=== PATIENT | female | born 1990 | race Caucasian/White ===

== ENCOUNTER → 2016-10-20 | Outpatient (CLI) | payer BC ==
--- NOTE | 2016-10-20 12:05 | DIAGNOSTIC IMAGING REPORT ---
CHEST 2 VIEWS ROUTINE CLINICAL HISTORY: R76.11 +PPD COMPARISON STUDY: No previous studies for comparison. FINDINGS: The cardiac and mediastinal contours are normal. There is no evidence of focal pulmonary consolidation. There is no evidence of failure. No pleural effusions are visualized.[ Slight indistinctness left heart border is likely secondary to a fat pad. No granulomatous calcifications are visualized. IMPRESSION: No active disease in the chest. Electronically signed by: Jim Gama M.D. 10/20/2016 12:04 PM Dictated Date/Time: 10/20/2016 12:03 PM
== END | disposition home or self-care (01) ==
LOC: C.RAD1850 11:50
PROVIDERS: ATTEND Student in an Organized Health Care Education/Training Program
DX: R76.11 Nonspecific reaction to tuberculin skin test without active tuberculosis (principal)

== ENCOUNTER → 2017-06-09 | Outpatient (CLI) | payer BC | END | disposition home or self-care (01) | LOC: C.PAPS 16:53 | PROVIDERS: ATTEND Physician Assistant | DX: Z01.419 Encounter for gynecological examination (general) (routine) without abnormal findings (principal) ==

== ENCOUNTER 2020-06-13 11:27 | Inpatient (IN) ==
[2020-06-13] MEDS ORDERED: PENICILLIN G POTASSIUM 6 MU in DEXTROSE 5% 250 ML IV STA (12:19)
[2020-06-13] MEDS ORDERED: OXYTOCIN 30 UNITS/500 ML BAG IV PRN ×2 (12:19→12:23)
[2020-06-13 12:51] LABS: Protein Creatinine Ratio Urine 0.4 (0-0.2); Total Protein Urine Random 94.7 mg/dl (0-11.9)
[2020-06-13 13:04] LABS: Hemoglobin 9.6 g/dL (12.0-16.0); Mean Corpuscular Hemoglobin 24.7 pg (25-34); Mean Corpuscular Volume 77.1 fL (80-100); Mean Platelet Volume 11.1 fL (7.4-10.4); Platelet Count 322 K/uL (130-400); RDW Coefficient of Variation 15.2 % (11.5-14.5); RDW Standard Deviation 42.8 fL (36.4-46.3); Red Blood Count 3.89 M/uL (4.2-5.4); White Blood Count 8.79 K/uL (4.8-10.8)
[2020-06-13 13:20] LABS: Alanine Aminotransferase 10 U/L (12-78); Albumin Level 2.3 gm/dl (3.4-5.0); Aspartate Aminotransferase 12 U/L (15-37); BUN Creatinine Ratio 15.8 (10-20); Blood Urea Nitrogen 8 mg/dl (7-18); Calcium 8.6 mg/dl (8.5-10.1); Carbon Dioxide 23 mmol/L (21-32); Chloride 109 mmol/L (98-107); Creatinine Clr Calc Pharmacy 224.1 ml/min; Est GFR (African American) > 150.0; Est GFR (Non-African American) 132.6; Glucose 98 mg/dl (70-99); Sodium 138 mmol/L (136-145); Uric Acid 3.2 mg/dl (2.6-7.2)
[2020-06-13 13:23] LABS: Albumin Globulin Ratio 0.6 (0.9-2); Alkaline Phosphatase 204 U/L (45-117); Bilirubin,Total 0.3 mg/dl (0.2-1); Total Protein 6.3 gm/dl (6.4-8.2)
--- NOTE | 2020-06-13 14:01 | History & Physical Report ---
Date of Service June 13, 2020 Assessment & Plan (1) Preeclampsia: Mattie Silveira is a 29y/o at 38 1/7 WGA who comes in due to elevated BP and proteinuria in the OB clinic. Admitted due to preeclampsia. - No COOPER, no RUQ pain--no severe features - Admit to L&D for IOL given gestational age and preeclampsia w/o SF - Will administer Cytotec 25mcg and recheck 4 hours after administration - IVF - Monitor BP - Anticipate vaginal delivery - Intrapartum PCN G for GBS+ (2) Group beta Strep positive: Admission and Anticipated Discharge Date Admission Date: June 13, 2020 History of Present Illness Primary Care Provider: NO PCP Mattie Silveira is a 29 y/o female currently at 38 1/7 WGA with an JULIANNE 06/26/20 as determined by LMP who is here due to elevated BP and proteinuria in the OB clinic this AM. She denies COOPER/vision changes and RUQ pain. Reports swelling in legs, some nausea, no vomiting. - contractions; + movement; - fluid loss; - bloody show Had regular appointments with OB. Blood type: O+ Antibody screen: Negative Rubella: Neg VDRL/RPR: Neg Gonorrhea: Neg Chlamydia: Neg HIV: Neg HbSAg: Neg GBS: Positive Allergies Allergy/AdvReac Type Severity Reaction Status Date / Time No Known Drug Allergies Allergy Verified 06/13/20 10:37 Home Medications Medication Instructions Recorded Confirmed Type prenat.vits,jimmy,aev-aikp-dqumj 1 tab PO DAILY 11/07/19 06/13/20 History breast pump #1 ea 04/03/20 06/13/20 Rx omeprazole magnesium PO DAILY 05/30/20 06/13/20 History Patient History Medical History (Updated 06/13/20 @ 14:01 by Willi Schneider MD) IBS (irritable bowel syndrome) Morbid obesity Ovarian cyst Surgical History H/O endoscopy History of laparoscopy S/P colonoscopy S/P wisdom tooth extraction Social History (Updated 11/07/19 @ 13:50 by Alejandra Duran) Smoking Status: Never smoker Hx Alcohol Use: No Hx Substance Use: No Preferred Language: Korean Communication Ability: Effective Radiophone Operator Required: No Beliefs That Will Affect Care: None marital status: marital status details: Mal (27) [phone] Current Living Situation: Spouse Current Living Situation Comment: lives with spouse, 1 dog, current occupational status: employed current occupation: Grad student at [employer] Feels Safe at Home: Yes Safety Concerns: Feels Safe At This Time Review of Systems Denies fever or chills. Denies shortness of breath or cough Denies chest pain Denies breast pain Denies dysuria or hematuria Denies leg pain Denies headache or changes in vision Physical Exam Physical Exam: General: Alert, oriented. No acute distress. Cardiac: Regular rate and rhythm, no murmurs/rubs/gallops. Respiratory: Clear to auscultation bilaterally a/p, no wheezes/rales/rhonchi. No increased work of breathing. Symmetrical chest rise. No respiratory distress. Abdomen: Gravid. Vertex position. + heart tones. - palpable contractions. Pelvic: Closed, thick, and high, per attending External FHT and external uterine monitors used; Category I tracing;Mod FHT variability. Lower Extremities: No lower extremity edema or swelling. No deep calf pain. Derek's negative bilaterally. Results & Data ([facility]) Vital Signs (Past 12 Hours) Vital Signs Temp Pulse Resp BP 06/13/20 13:42 108 H 139/92 06/13/20 13:27 109 H 135/92 06/13/20 13:00 20 06/13/20 12:57 108 H 129/88 06/13/20 12:45 20 06/13/20 12:42 110 H 139/86 06/13/20 12:27 110 H 174/92 H 06/13/20 12:15 16 06/13/20 12:01 36.5 C 20 06/13/20 11:46 125 H 147/85 H Laboratory Results Labs on admission today H.6 Hct: 30.0 WBC: 8.79 Plt: 322 Cr 0.5 AST 12 ALT 10 Alk phos 204 Lactate dehydrogenase 156 Urine protein/creatinine ratio 0.4 Code Status & VTE Plan VTE Prophylaxis Plan VTE Prophylaxis will be ordered: Yes Resident Activity Tracking Resident Involvement: Resident Care Provided Care Provided: OB Delivery
--- NOTE | 2020-06-13 14:18 | Labor Progress Brief Note ---
Date of Service June 13, 2020 Subjective Mild preeclampsia diagnosis met based on pr/cr ratio 0.4 and BPs. No severe features clinically or on labs. Still w/o complaints. Exam on admission with 2+ edema but 1 to 2+ DTR. Cervix to be examined. Will then start induction of labor. Patient agreeable to plan. Assessment & Plan Admission and Anticipated Discharge Date Admission Date: June 13, 2020 Results & Data ([facility]) Vital Signs (Past 12 Hours) Vital Signs Temp Pulse Resp BP 06/13/20 14:00 111 H 133/95 06/13/20 13:42 108 H 139/92 06/13/20 13:27 109 H 135/92 06/13/20 13:00 20 06/13/20 12:57 108 H 129/88 06/13/20 12:45 20 06/13/20 12:42 110 H 139/86 06/13/20 12:27 110 H 174/92 H 06/13/20 12:15 16 06/13/20 12:01 97.7 F 20 06/13/20 11:46 125 H 147/85 H Coding Level of Care Code None
[2020-06-13] MEDS ORDERED: miSOPROStoL 25 MCG TAB PV ONE (14:29)
[2020-06-13] MEDS ORDERED: miSOPROStoL 25 MCG TAB ONE (20:52)
--- NOTE | 2020-06-13 21:15 | Labor Progress Brief Note ---
Date of Service June 13, 2020 Subjective [place] mild cramps Assessment & Plan Admission and Anticipated Discharge Date Admission Date: June 13, 2020 Physical Exam Physical Exam: 50/-2 Next dose of 25mcg cytotec given FHT Cat 1 [place] quiet Results & Data ([facility]) Vital Signs (Past 12 Hours) Vital Signs Temp Pulse Resp BP 06/13/20 21:12 93 H 120/66 06/13/20 20:55 99 H 134/76 06/13/20 19:30 98.1 F 18 06/13/20 19:22 100 H 133/84 06/13/20 18:30 18 06/13/20 18:25 85 137/86 06/13/20 18:00 18 06/13/20 17:55 87 137/82 06/13/20 17:54 93 H 136/88 06/13/20 17:30 18 06/13/20 17:00 20 06/13/20 16:30 16 06/13/20 16:25 101 H 136/81 06/13/20 15:30 18 06/13/20 15:00 18 06/13/20 14:30 18 06/13/20 14:00 111 H 18 133/95 06/13/20 13:42 108 H 139/92 06/13/20 13:30 20 06/13/20 13:27 109 H 135/92 06/13/20 13:00 20 06/13/20 12:57 108 H 129/88 06/13/20 12:45 20 06/13/20 12:42 110 H 139/86 06/13/20 12:27 110 H 174/92 H 06/13/20 12:15 16 06/13/20 12:01 97.7 F 20 06/13/20 11:46 125 H 147/85 H Coding Level of Care Code None
[2020-06-14] MEDS: LACTATED RINGER'S 1,000 ML IV PRN ×3 (02:30→18:55)
--- NOTE | 2020-06-14 02:33 | Labor Progress Brief Note ---
Date of Service June 14, 2020 Subjective Crampy, tolerating well. Assessment & Plan (1) Preeclampsia: Without severe features. IOL in progress. Ready for pitocin at this point, will start. Epidural on request. Admission and Anticipated Discharge Date Admission Date: June 13, 2020 Physical Exam Physical Exam: 1.5/75/-2 FHT Cat 1 [place] Q2-5 Results & Data ([facility]) Vital Signs (Past 12 Hours) Vital Signs Temp Pulse Resp BP 06/13/20 23:57 81 128/81 06/13/20 22:13 88 155/78 H 06/13/20 22:00 18 06/13/20 21:57 92 H 115/68 06/13/20 21:42 92 H 119/67 06/13/20 21:27 92 H 121/71 06/13/20 21:12 93 H 120/66 06/13/20 20:55 99 H 134/76 06/13/20 19:30 98.1 F 18 06/13/20 19:22 100 H 133/84 06/13/20 18:30 18 06/13/20 18:25 85 137/86 06/13/20 18:00 18 06/13/20 17:55 87 137/82 06/13/20 17:54 93 H 136/88 06/13/20 17:30 18 06/13/20 17:00 20 06/13/20 16:30 16 06/13/20 16:25 101 H 136/81 06/13/20 15:30 18 06/13/20 15:00 18 Coding Level of Care Code None Diagnoses Preeclampsia O14.90
[2020-06-14] MEDS ORDERED: miSOPROStoL 25 MCG TAB PV ONE (02:35)
[2020-06-14] MEDS ORDERED: ONDANSETRON INJ 2 MG/ML 2 ML VIAL IV STA (04:57)
[2020-06-14] MEDS: PENICILLIN G POTASSIUM 3 MU in DEXTROSE 5% 100 ML IV PRN ×5 (06:43→22:34)
--- NOTE | 2020-06-14 07:54 | Labor Progress Brief Note ---
Date of Service June 14, 2020 Subjective Feeling minimal discomfort with contractions yet. Not ready for epidural. Assessment & Plan (1) Preeclampsia: IOL. S/p cytotec x2, now pitocin. Encouraged epidural prior to future exams and AROM given her increased discomfort. No sign of labial or introital injury, labial edema present and stable since her arrival here last night. BP improved since admission, pedal edema even improved a bit as well. Max BP 155/78 not recurrent. HTN in office yesterday as well, and 2+ proteinuria in office plus 0.4 pr/cr ratio made the diagnosis of PreE, but has not been with severe features. Serum labs reassuring. Edema is marked, but if anything is actually improving a bit at this time. Admission and Anticipated Discharge Date Admission Date: June 13, 2020 Physical Exam Physical Exam: [place] poorly traced; ?Q4-5 when picks up FHT Cat 1 Cvx unchanged from last check Patient very sore with exams; labia have had edema since time of admission, and she notes that a recent RN exam was especially painful for her. Exam of cervix now somewhat limited by patient withdrawing and closing thighs during attempts to reach internal os. Results & Data ([facility]) Vital Signs (Past 12 Hours) Vital Signs Temp Pulse Resp BP 06/14/20 07:37 93 H 111/68 06/14/20 07:08 77 130/76 06/14/20 06:56 88 128/89 06/14/20 06:07 88 135/83 06/14/20 05:37 87 130/76 06/14/20 05:06 81 130/84 06/14/20 04:26 97 H 119/65 06/14/20 03:56 89 131/69 06/14/20 03:25 96 H 128/76 06/14/20 03:00 98.6 F 18 06/14/20 02:55 90 125/75 06/13/20 23:57 81 128/81 06/13/20 22:13 88 155/78 H 06/13/20 22:00 18 06/13/20 21:57 92 H 115/68 06/13/20 21:42 92 H 119/67 06/13/20 21:27 92 H 121/71 06/13/20 21:12 93 H 120/66 06/13/20 20:55 99 H 134/76 Coding Level of Care Code None Diagnoses Preeclampsia O14.90
[2020-06-14] MEDS ORDERED: ePHEDrine sulfate 50 MG/ML AMP ONE (08:34)
[2020-06-14] MEDS ORDERED: SODIUM CHLORIDE 0.9% INJ 10 ML VIAL ONE (08:34)
[2020-06-14] MEDS ORDERED: fentaNYL citrate 100 MCG/2 ML VIAL ONE (08:35)
[2020-06-14] MEDS ORDERED: fentaNYL 2MCG/ML ROPIVACAINE 1.25MG/ML 100 ML BAG EPI ONE (08:35)
[2020-06-14] MEDS ORDERED: BUPIVACAINE 0.25% 30 ML VIAL ONE (08:35)
--- NOTE | 2020-06-14 08:49 | Anesthesiology Consultation ---
Date of Service June 14, 2020 Assessment & Plan (1) Encounter for pre-operative examination: Chart Review Chart Review: Acceptable Risk for Labor Epidural History Height/Weight Height: 5 ft 4 in Weight: 127.913 kg Allergies Allergy/AdvReac Type Severity Reaction Status Date / Time garlic Allergy Diarrhea Verified 06/13/20 18:53 onion Allergy Diarrhea Verified 06/13/20 18:53 Medications Home Medications Medication Instructions Recorded Confirmed Last Taken prenat.vits,jimmy,lyn-jfwy-xauno 1 tab PO DAILY 11/07/19 06/13/20 1 Day Ago ~06/12/20 breast pump #1 ea 04/03/20 06/13/20 Unknown omeprazole magnesium PO DAILY 05/30/20 06/13/20 06/13/20 Active Medications Generic Name Dose Route Start Last Admin Trade Name Freq PRN Reason Stop Dose Admin Penicillin G Potassium 3 mu/ 106 mls @ 100 mls/hr 06/13/20 12:19 06/14/20 07:47 Dextrose IV 06/23/20 12:18 Infused Q4H PRN Infusion Give until delivery Lactated Ringer's 1,000 mls @ 125 mls/hr 06/13/20 12:19 06/14/20 08:25 Lr IV 06/15/20 12:18 999 mls/hr .Q8H PRN Infusion L&D Protocol Protocol Oxytocin 30 units in 500 mls @ 11 mls/hr 06/13/20 12:23 06/14/20 08:14 Pitocin IV 06/15/20 12:22 0.66 units/hr .Q24H PRN 11 mls/hr Labor Induction/Augmentation Titration Protocol 0.66 UNITS/HR Past Medical History Medical History IBS (irritable bowel syndrome) Morbid obesity Ovarian cyst Past Surgical History Surgical History H/O endoscopy History of laparoscopy S/P colonoscopy S/P wisdom tooth extraction Social History Smoking Status: Never smoker Hx Alcohol Use: No Hx Substance Use: No substance use type: does not use Physical Exam Vital Signs Last Vital Signs Temp 36.7 C 06/14/20 07:08 Pulse 90 06/14/20 08:16 Resp 20 06/14/20 07:08 BP 141/63 H 06/14/20 08:16 Testing Laboratory Results 06/13/20 12:40 06/13/20 12:40
[2020-06-14] MEDS ORDERED: ONDANSETRON INJ 2 MG/ML 2 ML VIAL IV PRN (09:23)
[2020-06-14] MEDS ORDERED: ePHEDrine sulfate 50 MG/ML AMP IV PRN (09:23)
[2020-06-14] MEDS ORDERED: NALOXONE HCL 1 MG in SODIUM CHLORIDE 0.9% 1000ML 1,000 ML IV PRN (09:23)
[2020-06-14] MEDS ORDERED: NALOXONE HCL 0.4 MG/1 ML VIAL/CARP IV PRN (09:23)
--- NOTE | 2020-06-14 10:24 | Labor Progress Brief Note ---
Date of Service June 14, 2020 Subjective Reason For Note: Routine Evaluation Assessment & Plan (1) Preeclampsia: (2) Morbid obesity: (3) Supervision of normal intrauterine in primigravida: 29yo G1 at 38.2 weeks GA. IOL for PIH 1. Fetus: Cat 1 2. Labor: Progressing slowly. SROM clr. 3. GBS + : PCN 4. Epidural placed 5. PIH: Occasional mild range BPs. No signs or symptoms of worsening PIH. (4) Group beta Strep positive: Admission and Anticipated Discharge Date Admission Date: June 13, 2020 Physical Exam Genitourinary: OB Exam Abdomen: + vertex Manual OB Exam: + cervical dilation 2 cm, + cervical effacement 90%, + station -2 and + amniotic fluid (SROM) clear OB Exam Monitor Tracing: + external FHT monitor used, + external uterine monitor used, + category I and + normal FHT variability; no early decelerations present, no late decelerations present and no variable decelerations Results & Data ([facility]) Vital Signs (Past 12 Hours) Vital Signs Temp Pulse Resp BP Pulse Ox 06/14/20 10:17 91 H 98 06/14/20 10:12 82 98 06/14/20 10:10 77 109/59 L 06/14/20 10:07 78 99 06/14/20 10:02 82 97 06/14/20 09:57 80 98 06/14/20 09:54 81 111/59 L 06/14/20 09:52 81 98 06/14/20 09:47 90 98 06/14/20 09:42 84 98 06/14/20 09:37 82 98 06/14/20 09:36 93 H 108/57 L 06/14/20 09:32 92 H 98 06/14/20 09:31 86 112/58 L 06/14/20 09:27 87 98 06/14/20 09:25 91 H 121/58 L 06/14/20 09:23 95 H 119/57 L 06/14/20 09:22 92 H 98 06/14/20 09:21 92 H 118/56 L 06/14/20 09:19 91 H 123/58 L 06/14/20 09:17 91 H 124/58 L 98 06/14/20 09:15 83 125/56 L 06/14/20 09:13 71 128/60 06/14/20 09:12 73 98 06/14/20 09:07 113 H 100 06/14/20 09:02 89 99 06/14/20 08:57 141 H 100 06/14/20 08:16 90 141/63 H 06/14/20 07:37 93 H 111/68 06/14/20 07:08 36.7 C 77 20 130/76 06/14/20 06:56 88 128/89 06/14/20 06:07 88 135/83 06/14/20 05:37 87 130/76 06/14/20 05:06 81 130/84 06/14/20 04:26 97 H 119/65 06/14/20 03:56 89 131/69 06/14/20 03:25 96 H 128/76 06/14/20 03:00 37.0 C 18 06/14/20 02:55 90 125/75 06/13/20 23:57 81 128/81 Coding Level of Care Code None Diagnoses Preeclampsia O14.90 Morbid obesity E66.01 Supervision of normal intrauterine in primigravida Z34.00 Group beta Strep positive B95.1
--- NOTE | 2020-06-14 14:04 | Labor Progress Brief Note ---
Date of Service June 14, 2020 Subjective Reason For Note: Routine Evaluation Assessment & Plan (1) Supervision of normal intrauterine in primigravida: 29yo G1 at 38.2 weeks GA. IOL for PIH 1. Fetus: Cat 1 2. Labor: Progressing well. SROM clr. 3. GBS + : PCN 4. Epidural placed 5. PIH: Occasional mild range BPs. No signs or symptoms of worsening PIH. (2) Group beta Strep positive: Admission and Anticipated Discharge Date Admission Date: June 13, 2020 Physical Exam Genitourinary: OB Exam Abdomen: + vertex Manual OB Exam: + cervical dilation 5 cm, + cervical effacement 100%, + station -1 and + amniotic fluid clear OB Exam Monitor Tracing: + external FHT monitor used, + external uterine monitor used, + category I and + normal FHT variability; no early d ecelerations present, no late decelerations present and no variable decelerations Results & Data ([facility]) Vital Signs (Past 12 Hours) Vital Signs Temp Pulse Resp BP Pulse Ox 06/14/20 13:57 119 H 98 06/14/20 13:53 88 124/62 06/14/20 13:52 90 98 06/14/20 13:47 93 H 98 06/14/20 13:42 90 97 06/14/20 13:38 99 H 126/63 06/14/20 13:37 92 H 97 06/14/20 13:32 91 H 98 06/14/20 13:27 93 H 98 06/14/20 13:24 91 H 126/64 06/14/20 13:22 99 H 97 06/14/20 13:17 90 97 06/14/20 13:12 91 H 97 06/14/20 13:08 101 H 122/64 06/14/20 13:07 92 H 98 06/14/20 13:02 91 H 98 06/14/20 12:57 91 H 98 06/14/20 12:53 85 123/65 06/14/20 12:52 90 97 06/14/20 12:47 87 98 06/14/20 12:42 95 H 98 06/14/20 12:38 90 109/59 L 06/14/20 12:37 90 98 06/14/20 12:32 87 99 06/14/20 12:27 98 H 98 06/14/20 12:24 88 104/55 L 06/14/20 12:22 92 H 98 06/14/20 12:17 89 98 06/14/20 12:12 83 98 06/14/20 12:08 89 104/59 L 06/14/20 12:07 85 99 06/14/20 12:02 86 99 06/14/20 12:00 36.9 C 18 06/14/20 11:57 94 H 99 06/14/20 11:53 88 107/58 L 06/14/20 11:52 83 99 06/14/20 11:47 82 99 06/14/20 11:42 85 98 06/14/20 11:38 77 111/59 L 06/14/20 11:37 80 98 06/14/20 11:32 85 113/57 L 99 06/14/20 11:27 85 98 06/14/20 11:24 81 111/58 L 06/14/20 11:22 84 98 06/14/20 11:17 85 98 06/14/20 11:12 80 99 06/14/20 11:08 100 H 108/59 L 06/14/20 11:07 88 100 06/14/20 11:02 88 98 06/14/20 10:57 87 98 06/14/20 10:53 90 113/58 L 06/14/20 10:52 91 H 99 06/14/20 10:47 89 99 06/14/20 10:42 88 98 06/14/20 10:38 83 111/59 L 06/14/20 10:37 84 98 06/14/20 10:32 86 97 06/14/20 10:27 80 99 06/14/20 10:23 80 110/60 06/14/20 10:22 79 98 06/14/20 10:17 91 H 98 06/14/20 10:12 82 98 06/14/20 10:10 77 109/59 L 06/14/20 10:07 78 99 06/14/20 10:02 82 97 06/14/20 09:57 80 98 06/14/20 09:54 81 111/59 L 06/14/20 09:52 81 98 06/14/20 09:47 90 98 06/14/20 09:42 84 98 06/14/20 09:37 82 98 06/14/20 09:36 93 H 108/57 L 06/14/20 09:32 92 H 98 06/14/20 09:31 86 112/58 L 06/14/20 09:27 87 98 06/14/20 09:25 91 H 121/58 L 06/14/20 09:23 95 H 119/57 L 06/14/20 09:22 92 H 98 06/14/20 09:21 92 H 118/56 L 06/14/20 09:19 91 H 123/58 L 06/14/20 09:17 91 H 124/58 L 98 06/14/20 09:15 83 125/56 L 06/14/20 09:13 71 128/60 06/14/20 09:12 73 98 06/14/20 09:07 113 H 100 06/14/20 09:02 89 99 06/14/20 08:57 141 H 100 06/14/20 08:40 36.8 C 20 06/14/20 08:16 90 141/63 H 06/14/20 07:37 93 H 111/68 06/14/20 07:08 36.7 C 77 20 130/76 06/14/20 06:56 88 128/89 06/14/20 06:07 88 135/83 06/14/20 05:37 87 130/76 06/14/20 05:06 81 130/84 06/14/20 04:26 97 H 119/65 06/14/20 03:56 89 131/69 06/14/20 03:25 96 H 128/76 06/14/20 03:00 37.0 C 18 06/14/20 02:55 90 125/75 Coding Level of Care Code None Diagnoses Supervision of normal intrauterine in primigravida Z34.00 Group beta Strep positive B95.1
[2020-06-14] MEDS: fentaNYL 2MCG/ML ROPIVACAINE 1.25MG/ML 100 ML BAG EPI PRN ×2 (15:41→21:52)
--- NOTE | 2020-06-14 20:06 | Labor Progress Brief Note ---
Date of Service June 14, 2020 Subjective Reason For Note: Routine Evaluation Assessment & Plan (1) Supervision of normal intrauterine in primigravida: 29yo G1 at 38.2 weeks GA. IOL for PIH 1. Fetus: Cat 1 2. Labor: Progressing well. SROM clr. 3. GBS + : PCN 4. Epidural placed 5. PIH: Occasional mild range BPs. No signs or symptoms of worsening PIH. (2) Group beta Strep positive: Admission and Anticipated Discharge Date Admission Date: June 13, 2020 Physical Exam Genitourinary: OB Exam Abdomen: + vertex Manual OB Exam: + cervical dilation 10 cm, + cervical effacement 100%, + station + 1 and + amniotic fluid clear OB Exam Monitor Tracing: + external FHT monitor used, + external uterine monitor used, + category I and + normal FHT variability; no early decelerations present, no late decelerations present and no variable decelerations Results & Data ([facility]) Vital Signs (Past 12 Hours) Vital Signs Temp Pulse Resp BP Pulse Ox 06/14/20 20:02 109 H 100 06/14/20 19:57 101 H 96 06/14/20 19:53 92 H 116/70 06/14/20 19:52 94 H 98 06/14/20 19:47 97 H 96 06/14/20 19:42 94 H 98 06/14/20 19:39 105 H 128/56 L 06/14/20 19:37 93 H 97 06/14/20 19:32 101 H 96 06/14/20 19:27 93 H 98 06/14/20 19:23 96 H 132/62 06/14/20 19:22 90 98 06/14/20 19:17 101 H 97 06/14/20 19:12 100 H 97 06/14/20 19:10 37.1 C 20 06/14/20 19:09 118 H 130/72 06/14/20 19:07 97 H 97 06/14/20 19:02 96 H 97 06/14/20 18:57 89 98 06/14/20 18:53 105 H 123/58 L 06/14/20 18:52 92 H 97 06/14/20 18:47 91 H 98 06/14/20 18:42 104 H 98 06/14/20 18:38 86 126/63 06/14/20 18:37 89 98 06/14/20 18:32 103 H 97 06/14/20 18:27 101 H 97 06/14/20 18:23 103 H 137/73 06/14/20 18:22 103 H 97 06/14/20 18:17 98 H 97 06/14/20 18:12 105 H 97 06/14/20 18:08 100 H 112/59 L 06/14/20 18:07 99 H 97 06/14/20 18:02 102 H 97 06/14/20 17:57 108 H 98 06/14/20 17:54 97 H 121/59 L 06/14/20 17:52 99 H 98 06/14/20 17:47 103 H 98 06/14/20 17:42 107 H 98 06/14/20 17:38 112 H 125/66 06/14/20 17:37 106 H 97 06/14/20 17:32 118 H 97 06/14/20 17:27 108 H 98 06/14/20 17:23 123 H 116/63 06/14/20 17:22 102 H 96 06/14/20 17:17 104 H 97 06/14/20 17:12 106 H 97 06/14/20 17:08 103 H 123/68 06/14/20 17:07 105 H 97 06/14/20 17:02 102 H 97 06/14/20 16:57 99 H 97 06/14/20 16:54 102 H 139/65 06/14/20 16:52 104 H 98 06/14/20 16:47 104 H 98 06/14/20 16:42 106 H 98 06/14/20 16:38 105 H 122/55 L 06/14/20 16:37 108 H 97 06/14/20 16:32 110 H 97 06/14/20 16:27 105 H 98 06/14/20 16:23 112 H 112/62 06/14/20 16:22 114 H 97 06/14/20 16:17 101 H 97 06/14/20 16:12 107 H 97 06/14/20 16:08 104 H 113/60 06/14/20 16:07 107 H 97 06/14/20 16:02 103 H 97 06/14/20 15:57 101 H 97 06/14/20 15:53 103 H 111/63 03/27/21 15:52 108 H 99 06/14/20 15:48 37.1 C 18 06/14/20 15:47 106 H 97 06/14/20 15:42 105 H 98 06/14/20 15:39 100 H 107/58 L 06/14/20 15:37 99 H 98 06/14/20 15:32 95 H 98 06/14/20 15:27 100 H 98 06/14/20 15:23 100 H 109/58 L 06/14/20 15:22 95 H 99 06/14/20 15:17 98 H 97 06/14/20 15:12 100 H 98 06/14/20 15:08 88 107/55 L 06/14/20 15:07 98 H 98 06/14/20 15:02 97 H 99 06/14/20 14:57 114 H 100 06/14/20 14:54 101 H 115/59 L 06/14/20 14:52 88 98 06/14/20 14:47 94 H 98 06/14/20 14:42 100 H 98 06/14/20 14:38 96 H 134/63 06/14/20 14:37 103 H 98 06/14/20 14:32 105 H 99 06/14/20 14:27 100 H 98 06/14/20 14:23 93 H 115/54 L 06/14/20 14:22 97 H 98 06/14/20 14:17 102 H 98 06/14/20 14:12 94 H 99 06/14/20 14:09 103 H 123/59 L 06/14/20 14:07 100 H 98 06/14/20 14:02 108 H 99 06/14/20 13:57 119 H 98 06/14/20 13:53 37.1 C 88 18 124/62 06/14/20 13:52 90 98 06/14/20 13:47 93 H 98 06/14/20 13:42 90 97 06/14/20 13:38 99 H 126/63 06/14/20 13:37 92 H 97 06/14/20 13:27 93 H 98 06/14/20 13:24 91 H 126/64 06/14/20 13:22 99 H 97 06/14/20 13:17 90 97 06/14/20 13:12 91 H 97 03/27/21 13:08 101 H 122/64 06/14/20 13:07 92 H 98 06/14/20 13:02 91 H 98 06/14/20 12:57 91 H 98 06/14/20 12:53 85 123/65 06/14/20 12:52 90 97 06/14/20 12:47 87 98 06/14/20 12:42 95 H 98 06/14/20 12:38 90 109/59 L 06/14/20 12:37 90 98 06/14/20 12:32 87 99 06/14/20 12:27 98 H 98 06/14/20 12:24 88 104/55 L 06/14/20 12:22 92 H 98 06/14/20 12:17 89 98 06/14/20 12:12 83 98 06/14/20 12:08 89 104/59 L 06/14/20 12:07 85 99 06/14/20 12:02 86 99 06/14/20 12:00 36.9 C 18 06/14/20 11:57 94 H 99 06/14/20 11:53 88 107/58 L 06/14/20 11:52 83 99 06/14/20 11:47 82 99 06/14/20 11:42 85 98 06/14/20 11:38 77 111/59 L 06/14/20 11:37 80 98 06/14/20 11:32 85 113/57 L 99 06/14/20 11:27 85 98 06/14/20 11:24 81 111/58 L 06/14/20 11:22 84 98 06/14/20 11:17 85 98 06/14/20 11:12 80 99 06/14/20 11:08 100 H 108/59 L 06/14/20 11:07 88 100 06/14/20 11:02 88 98 06/14/20 11:00 36.7 C 20 06/14/20 10:57 87 98 06/14/20 10:53 90 113/58 L 06/14/20 10:52 91 H 99 06/14/20 10:47 89 99 06/14/20 10:42 88 98 06/14/20 10:38 83 111/59 L 06/14/20 10:37 84 98 06/14/20 10:32 86 97 06/14/20 10:27 80 99 06/14/20 10:23 80 110/60 06/14/20 10:22 79 98 06/14/20 10:17 91 H 98 06/14/20 10:12 82 98 06/14/20 10:10 77 109/59 L 06/14/20 10:07 78 99 06/14/20 10:02 82 97 06/14/20 09:57 80 98 06/14/20 09:54 81 111/59 L 06/14/20 09:52 81 98 06/14/20 09:47 90 98 06/14/20 09:42 84 98 06/14/20 09:37 82 98 06/14/20 09:36 93 H 108/57 L 06/14/20 09:32 92 H 98 06/14/20 09:31 86 112/58 L 06/14/20 09:27 87 98 06/14/20 09:25 91 H 121/58 L 06/14/20 09:23 95 H 119/57 L 06/14/20 09:22 92 H 98 06/14/20 09:21 92 H 118/56 L 06/14/20 09:19 91 H 123/58 L 06/14/20 09:17 91 H 124/58 L 98 06/14/20 09:15 83 125/56 L 06/14/20 09:13 71 128/60 06/14/20 09:12 73 98 06/14/20 09:07 113 H 100 06/14/20 09:02 89 99 06/14/20 08:57 141 H 100 06/14/20 08:40 36.8 C 20 06/14/20 08:16 90 141/63 H Coding Level of Care Code None Diagnoses Supervision of normal intrauterine in primigravida Z34.00 Group beta Strep positive B95.1
[2020-06-14] MEDS ORDERED: NURSING L&D Epidural Breakthrough Pain Update ONE (20:08)
[2020-06-15] MEDS ORDERED: AZITHROMYCIN 500 MG in DEXTROSE 5% 250 ML IV STA (00:54)
--- NOTE | 2020-06-15 01:01 | History & Physical Bridge Note ---
Date of Service June 15, 2020 History & Physical Bridge Note I have examined the patient, reviewed the History & Physical and in the interval since the performance of the History & Physical I have noted the following changes of clinical significance: no changes noted
[2020-06-15] MEDS ORDERED: CITRIC ACID/SODIUM CITRATE 15 ML UDC ONE (01:09)
[2020-06-15] MEDS ORDERED: CEFAZOLIN 3000 MG IV STA (01:10)
[2020-06-15] MEDS ORDERED: HYDROmorphone INJ 0.5 MG/0.5 ML SYR IV PRN (01:14)
[2020-06-15] MEDS ORDERED: LACTATED RINGER'S 500 ML IV PRN (01:14)
[2020-06-15] MEDS ORDERED: MoRPHine SULFATE PF 1 MG/ML 10 ML AMP/VIAL EPI ONE (01:14)
[2020-06-15] MEDS ORDERED: NALOXONE HCL 0.4 MG/1 ML VIAL/CARP IV PRN (01:14)
[2020-06-15] MEDS ORDERED: NALOXONE HCL 0.08 MG in SYRINGE 1.8 ML IV PRN (01:14)
[2020-06-15] MEDS ORDERED: diphenhydrAMINE 50 MG/ML VIAL IV PRN ×2 (01:14→19:14)
[2020-06-15] MEDS ORDERED: NALOXONE HCL 1 MG in SODIUM CHLORIDE 0.9% 1000ML 1,000 ML IV PRN (01:14)
[2020-06-15] MEDS ORDERED: ePHEDrine sulfate 50 MG/ML AMP IV PRN (01:14)
[2020-06-15] MEDS ORDERED: SODIUM CHLORIDE 0.9% 1000ML 1,000 ML IV SCH (01:15)
[2020-06-15] MEDS ORDERED: NO NARCOTICS OR SEDATIVES SCH (01:15)
[2020-06-15] MEDS ORDERED: DC INTRASPINAL MORPHINE SCH (01:15)
[2020-06-15] MEDS ORDERED: fentaNYL citrate 100 MCG/2 ML VIAL ONE (01:16)
[2020-06-15] MEDS ORDERED: LIDOCAINE 2%/EPINEPHRINE 1:200,000 20 ML SDV ONE ×2 (01:16→01:38)
[2020-06-15] MEDS ORDERED: ONDANSETRON INJ 2 MG/ML 2 ML VIAL ONE (01:35)
[2020-06-15] MEDS ORDERED: OXYTOCIN 10 UNITS/ML VIAL ONE ×2 (01:36→01:55)
[2020-06-15] MEDS ORDERED: MoRPHine SULFATE PF 1 MG/ML 10 ML AMP/VIAL ONE (01:36)
[2020-06-15] MEDS ORDERED: PHENYLEPHRINE 100MCG/ML 5ML SYR ONE ×2 (01:36→02:21)
[2020-06-15] MEDS ORDERED: METHYLERGONOVINE MALEATE 0.2 MG/ML AMP ONE (02:03)
[2020-06-15] MEDS ORDERED: SENNA 8.6 MG TAB PO PRN (02:42)
[2020-06-15] MEDS ORDERED: SUPERCREAM 0.870% 15 GM JAR EXT PRN (02:42)
[2020-06-15] MEDS ORDERED: MAGNESIUM HYDROXIDE SUSP 30 ML UDC PO PRN (02:42)
[2020-06-15] MEDS ORDERED: DIPHTHERIA/TETANUS/PERTUSSIS 0.5 ML SYR/VIAL IM ONE (02:42)
[2020-06-15] MEDS ORDERED: BENZOCAINE 20% AER SPR 82.5 GM CAN EXT PRN (02:42)
[2020-06-15] MEDS ORDERED: HYDROCORTISONE ACETATE 25 MG SUPP PR PRN (02:42)
--- NOTE | 2020-06-15 02:42 | Post Operative Brief Note ---
PG Immediate Post Op with CF Date of Surgery June 15, 2020 Pre & Post Diagnosis Operation Date: 06/15/20 02:00 Arrest of descent Failed vacuum delivery I identified the patient and participated in the time-out.: Yes Procedure Operation Date: 06/15/20 02:00 Primary low transverse Surgeon Jared Villa MD Home Inspector none Estimated Blood Loss 800 Findings Consistent with Post-Op Diagnosis Specimens Specimen Description: placenta
[2020-06-15] MEDS ORDERED: LACTATED RINGER'S 1,000 ML IV SCH (02:45)
--- NOTE | 2020-06-15 03:38 | Anesthesiology Progress Note ---
Date of Service June 15, 2020 Anesthesia Post Procedure Vital Signs Vital Signs: Temp Pulse Resp BP Pulse Ox 06/15/20 03:36 86 93 06/15/20 03:33 91 H 127/76 06/15/20 03:31 88 98 06/15/20 03:29 91 H 87 L 06/15/20 03:26 94 H 96 06/15/20 03:23 93 H 118/57 L 06/15/20 03:21 96 H 95 06/15/20 03:16 97 H 89 L 06/15/20 03:13 81 121/60 06/15/20 03:11 89 92 06/15/20 03:03 101 H 99 06/15/20 03:02 103 H 128/65 06/15/20 03:00 37.5 C 18 06/15/20 02:59 104 H 92 06/15/20 02:58 105 H 98 06/15/20 02:53 110 H 100 06/15/20 01:18 96 H 97 06/15/20 01:13 89 98 06/15/20 01:09 90 131/60 06/15/20 01:08 36.8 C 89 20 97 06/15/20 01:03 100 H 96 06/15/20 01:01 104 H 93 06/15/20 00:57 97 H 95 06/15/20 00:53 103 H 139/71 06/15/20 00:52 113 H 97 06/15/20 00:47 108 H 98 06/15/20 00:42 106 H 97 06/15/20 00:37 123 H 97 06/15/20 00:32 107 H 97 06/15/20 00:30 20 06/15/20 00:27 113 H 94 06/15/20 00:25 116 H 126/60 06/15/20 00:23 111 H 90 06/15/20 00:22 105 H 97 06/15/20 00:17 113 H 97 06/15/20 00:16 118 H 90 06/15/20 00:12 109 H 97 06/15/20 00:09 111 H 88 L 06/15/20 00:08 116 H 102/53 L 06/15/20 00:07 114 H 97 06/15/20 00:02 130 H 99 06/15/20 00:00 20 06/14/20 23:57 136 H 97 06/14/20 23:53 173 H 134/82 06/14/20 23:52 122 H 96 06/14/20 23:47 125 H 98 06/14/20 23:45 20 06/14/20 23:44 140 H 91 06/14/20 23:42 117 H 96 06/14/20 23:38 117 H 128/73 06/14/20 23:37 125 H 95 06/14/20 23:32 126 H 98 06/14/20 23:30 20 06/14/20 23:27 125 H 97 06/14/20 23:25 118 H 88 L 06/14/20 23:23 120 H 127/60 06/14/20 23:22 127 H 97 06/14/20 23:18 113 H 91 06/14/20 23:17 115 H 97 06/14/20 23:15 20 06/14/20 23:12 119 H 97 06/14/20 23:10 137 H 93 06/14/20 23:08 113 H 124/62 06/14/20 23:07 116 H 97 06/14/20 23:02 137 H 97 06/14/20 23:00 20 06/14/20 22:57 110 H 98 06/14/20 22:54 37.3 C 06/14/20 22:53 109 H 130/62 06/14/20 22:52 109 H 97 06/14/20 22:47 111 H 97 06/14/20 22:45 20 06/14/20 22:42 111 H 97 06/14/20 22:41 117 H 88 L 06/14/20 22:39 110 H 140/63 06/14/20 22:37 106 H 96 06/14/20 22:32 121 H 99 06/14/20 22:30 20 06/14/20 22:27 100 H 98 06/14/20 22:23 98 H 115/66 06/14/20 22:22 100 H 98 06/14/20 22:17 100 H 97 06/14/20 22:12 93 H 99 06/14/20 22:08 109 H 116/58 L 06/14/20 22:07 119 H 98 06/14/20 22:02 110 H 96 06/14/20 22:00 20 06/14/20 21:57 151 H 96 06/14/20 21:53 109 H 119/58 L 06/14/20 21:52 112 H 97 06/14/20 21:47 121 H 99 06/14/20 21:45 20 06/14/20 21:42 139 H 96 06/14/20 21:38 102 H 112/61 06/14/20 21:37 114 H 98 06/14/20 21:32 119 H 98 06/14/20 21:30 20 06/14/20 21:27 108 H 84 L 06/14/20 21:23 106 H 121/60 06/14/20 21:22 113 H 100 06/14/20 21:17 122 H 99 06/14/20 21:15 37.3 C 06/14/20 21:12 122 H 100 06/14/20 21:08 118 H 136/71 06/14/20 21:07 104 H 100 06/14/20 21:02 122 H 99 06/14/20 21:00 20 06/14/20 20:57 106 H 99 06/14/20 20:53 106 H 122/58 L 06/14/20 20:52 110 H 100 06/14/20 20:47 86 98 06/14/20 20:42 95 H 100 06/14/20 20:39 81 137/67 06/14/20 20:37 97 H 97 06/14/20 20:32 87 98 06/14/20 20:30 20 06/14/20 20:27 92 H 99 06/14/20 20:24 86 133/83 06/14/20 20:22 98 H 97 06/14/20 20:17 104 H 100 06/14/20 20:12 102 H 99 06/14/20 20:09 105 H 131/71 06/14/20 20:07 95 H 98 06/14/20 20:02 109 H 100 06/14/20 20:00 20 06/14/20 19:57 101 H 96 06/14/20 19:53 92 H 116/70 06/14/20 19:52 94 H 98 06/14/20 19:47 97 H 96 06/14/20 19:42 94 H 98 06/14/20 19:39 105 H 128/56 L 06/14/20 19:37 93 H 97 03/27/21 19:32 101 H 96 06/14/20 19:30 20 06/14/20 19:27 93 H 98 06/14/20 19:23 96 H 132/62 06/14/20 19:22 90 98 06/14/20 19:17 101 H 97 06/14/20 19:12 100 H 97 06/14/20 19:10 37.1 C 20 06/14/20 19:09 118 H 130/72 06/14/20 19:07 97 H 97 06/14/20 19:02 96 H 97 06/14/20 18:57 89 98 06/14/20 18:53 105 H 123/58 L 06/14/20 18:52 92 H 97 06/14/20 18:47 91 H 98 06/14/20 18:42 104 H 98 06/14/20 18:38 86 126/63 06/14/20 18:37 89 98 06/14/20 18:32 103 H 97 06/14/20 18:27 101 H 97 06/14/20 18:23 103 H 137/73 06/14/20 18:22 103 H 97 06/14/20 18:17 98 H 97 06/14/20 18:12 105 H 97 06/14/20 18:08 100 H 112/59 L 06/14/20 18:07 99 H 97 06/14/20 18:02 102 H 97 06/14/20 17:57 108 H 98 06/14/20 17:54 97 H 121/59 L 06/14/20 17:52 99 H 98 06/14/20 17:47 103 H 98 06/14/20 17:42 107 H 98 06/14/20 17:38 112 H 125/66 06/14/20 17:37 106 H 97 06/14/20 17:32 118 H 97 06/14/20 17:27 108 H 98 06/14/20 17:23 123 H 116/63 06/14/20 17:22 102 H 96 06/14/20 17:17 104 H 97 06/14/20 17:12 106 H 97 06/14/20 17:08 103 H 123/68 06/14/20 17:07 105 H 97 06/14/20 17:02 102 H 97 06/14/20 16:57 99 H 97 06/14/20 16:54 102 H 139/65 06/14/20 16:52 104 H 98 06/14/20 16:47 104 H 98 06/14/20 16:42 106 H 98 06/14/20 16:38 105 H 122/55 L 06/14/20 16:37 108 H 97 06/14/20 16:32 110 H 97 06/14/20 16:27 105 H 98 06/14/20 16:23 112 H 112/62 06/14/20 16:22 114 H 97 06/14/20 16:17 101 H 97 06/14/20 16:12 107 H 97 06/14/20 16:08 104 H 113/60 06/14/20 16:07 107 H 97 06/14/20 16:02 103 H 97 06/14/20 15:57 101 H 97 06/14/20 15:53 103 H 111/63 06/14/20 15:52 108 H 99 06/14/20 15:48 37.1 C 18 06/14/20 15:47 106 H 97 06/14/20 15:42 105 H 98 06/14/20 15:39 100 H 107/58 L 06/14/20 15:37 99 H 98 06/14/20 15:32 95 H 98 06/14/20 15:27 100 H 98 06/14/20 15:23 100 H 109/58 L 06/14/20 15:22 95 H 99 06/14/20 15:17 98 H 97 06/14/20 15:12 100 H 98 06/14/20 15:08 88 107/55 L 06/14/20 15:07 98 H 98 06/14/20 15:02 97 H 99 06/14/20 14:57 114 H 100 06/14/20 14:54 101 H 115/59 L 06/14/20 14:52 88 98 06/14/20 14:47 94 H 98 06/14/20 14:42 100 H 98 06/14/20 14:38 96 H 134/63 06/14/20 14:37 103 H 98 06/14/20 14:32 105 H 99 06/14/20 14:27 100 H 98 06/14/20 14:23 93 H 115/54 L 06/14/20 14:22 97 H 98 06/14/20 14:17 102 H 98 06/14/20 14:12 94 H 99 06/14/20 14:09 103 H 123/59 L 06/14/20 14:07 100 H 98 06/14/20 14:02 108 H 99 06/14/20 13:57 119 H 98 06/14/20 13:53 37.1 C 88 18 124/62 06/14/20 13:52 90 98 06/14/20 13:47 93 H 98 06/14/20 13:42 90 97 06/14/20 13:38 99 H 126/63 06/14/20 13:37 92 H 97 06/14/20 13:27 93 H 98 06/14/20 13:24 91 H 126/64 06/14/20 13:22 99 H 97 06/14/20 13:17 90 97 06/14/20 13:12 91 H 97 06/14/20 13:08 101 H 122/64 06/14/20 13:07 92 H 98 06/14/20 13:02 91 H 98 06/14/20 12:57 91 H 98 06/14/20 12:53 85 123/65 06/14/20 12:52 90 97 06/14/20 12:47 87 98 06/14/20 12:42 95 H 98 06/14/20 12:38 90 109/59 L 06/14/20 12:37 90 98 06/14/20 12:32 87 99 06/14/20 12:27 98 H 98 06/14/20 12:24 88 104/55 L 06/14/20 12:22 92 H 98 06/14/20 12:17 89 98 06/14/20 12:12 83 98 06/14/20 12:08 89 104/59 L 06/14/20 12:07 85 99 06/14/20 12:02 86 99 06/14/20 12:00 36.9 C 18 06/14/20 11:57 94 H 99 06/14/20 11:53 88 107/58 L 06/14/20 11:52 83 99 06/14/20 11:47 82 99 06/14/20 11:42 85 98 06/14/20 11:38 77 111/59 L 06/14/20 11:37 80 98 06/14/20 11:32 85 113/57 L 99 06/14/20 11:27 85 98 06/14/20 11:24 81 111/58 L 06/14/20 11:22 84 98 06/14/20 11:17 85 98 06/14/20 11:12 80 99 06/14/20 11:08 100 H 108/59 L 06/14/20 11:07 88 100 06/14/20 11:02 88 98 06/14/20 11:00 36.7 C 20 06/14/20 10:57 87 98 06/14/20 10:53 90 113/58 L 06/14/20 10:52 91 H 99 06/14/20 10:47 89 99 06/14/20 10:42 88 98 06/14/20 10:38 83 111/59 L 06/14/20 10:37 84 98 06/14/20 10:32 86 97 06/14/20 10:27 80 99 06/14/20 10:23 80 110/60 06/14/20 10:22 79 98 06/14/20 10:17 91 H 98 06/14/20 10:12 82 98 06/14/20 10:10 77 109/59 L 06/14/20 10:07 78 99 06/14/20 10:02 82 97 06/14/20 09:57 80 98 06/14/20 09:54 81 111/59 L 06/14/20 09:52 81 98 06/14/20 09:47 90 98 06/14/20 09:42 84 98 06/14/20 09:37 82 98 06/14/20 09:36 93 H 108/57 L 06/14/20 09:32 92 H 98 06/14/20 09:31 86 112/58 L 06/14/20 09:27 87 98 06/14/20 09:25 91 H 121/58 L 06/14/20 09:23 95 H 119/57 L 06/14/20 09:22 92 H 98 06/14/20 09:21 92 H 118/56 L 06/14/20 09:19 91 H 123/58 L 06/14/20 09:17 91 H 124/58 L 98 06/14/20 09:15 83 125/56 L 06/14/20 09:13 71 128/60 06/14/20 09:12 73 98 06/14/20 09:07 113 H 100 06/14/20 09:02 89 99 06/14/20 08:57 141 H 100 06/14/20 08:40 36.8 C 20 06/14/20 08:16 90 141/63 H 06/14/20 07:37 93 H 111/68 06/14/20 07:08 36.7 C 77 20 130/76 06/14/20 06:56 88 128/89 06/14/20 06:07 88 135/83 06/14/20 05:37 87 130/76 06/14/20 05:06 81 130/84 06/14/20 04:26 97 H 119/65 06/14/20 03:56 89 131/69 Pain Intensity Right Abdomen: Pain Intensity: 5 Transfer of Care Handoff Completed per policy Notes Mental Status: alert / awake / arousable Patient Amnestic to Procedure: Yes Nausea / Vomiting: adequately controlled Pain: adequately controlled Airway Patency, RR, SpO2: stable & adequate BP & HR: stable & adequate Hydration State: stable & adequate Neuraxial Anesthesia: was administered and sensory block is resolving Anesthetic Complications: no major complications apparent and Pt Satisfied with anesthetic care
[2020-06-15] MEDS: OXYTOCIN 20 UNITS in LACTATED RINGER'S 1,000 ML IV SCH ×2 (05:11→14:25)
[2020-06-15] MEDS: KETOROLAC 30 MG/ML VIAL IV PRN ×2 (06:48→13:08)
[2020-06-15] MEDS: SIMETHICONE 80 MG CHEW PO SCH ×4 (08:10→20:30)
[2020-06-15] MEDS: FERROUS SULFATE 325 MG TAB PO SCH (08:10)
[2020-06-15] MEDS: PRENATAL VITAMIN 1 TAB PO SCH (08:10)
[2020-06-15] MEDS: DOCUSATE SODIUM 100 MG CAP PO SCH ×2 (08:10→20:30)
[2020-06-15 10:52] LABS: Hematocrit (blood only) 27.1 % (37-47); Hemoglobin 8.4 g/dL (12.0-16.0)
--- NOTE | 2020-06-15 12:07 | Operative Report (OR) ---
DATE OF OPERATION: 06/15/2020 PROCEDURE: Primary low transverse section. SURGEON: Jared Villa MD. PREOPERATIVE DIAGNOSES: 1. Single intrauterine at 38 weeks 3 days gestational age. 2. Preeclampsia without severe features. 3. BMI greater than 45. 4. GBS positive. 5. Arrest of descent. 6. Failed vacuum. POSTOPERATIVE DIAGNOSES: 1. Single intrauterine at 38 weeks 3 days gestational age. 2. Preeclampsia without severe features. 3. BMI greater than 45. 4. GBS positive. 5. Arrest of descent. 6. Failed vacuum. 7. Status post delivery. ESTIMATED BLOOD LOSS: 800 mL DRAINS: Antoine catheter. FLUIDS: Continuous lactated Ringer. URINE OUTPUT: Per Antoine catheter. COMPLICATIONS: None. FINDINGS: Normal viable female with weight of 8 pounds 9 ounces and Apgars suspected 8 and 9 at 1 and 5 minutes respectively. Normal appearing uterus, and bilateral fallopian tubes and ovaries. HOSPITAL COURSE: The patient was admitted for induction of labor secondary to preeclampsia without severe features. The patient received cervical ripening with Cytotec x2. She was started on oxytocin per regular protocol. She underwent spontaneous rupture of membranes for clear fluid. She received an epidural for anesthesia and progressed in labor to complete-complete +1 station, at which time she began to push. The patient pushed for over 3 hours with minimal descent noted, with descent only to +2 station noted. The patient was consulted at that time on delivery versus continued pushing versus a trial of vacuum. A trial of vacuum was opted after the patient was informed of the risks of the procedure once verbally consented. We discussed the risk of a scalp abrasions and mild scalp injuries, discussed the risk of cephalohematomas and subgaleal hematomas. Also, discussed increased risk of shoulder dystocia as well as other related risk to these complications including long-term malformations and scarring. The patient agreed to the procedure, an attempted vacuum, over 3 contractions was attempted. No descent was noted and decision was made to end the vacuum assist and proceed with a section. The patient was then consented for the section. DESCRIPTION OF PROCEDURE: The patient was taken to the operating room after consents were ensured. Upon presentation, she was properly identified. The patient's epidural was bolused to achieve adequate surgical levels, prepped and draped in normal sterile fashion. Preprocedural timeout was performed. A Pfannenstiel incision was then made with a knife and was carried down to underlying fascia with the Bovie. The fascia was then nicked at the midline with a knife and was extended laterally in each direction with pickblanca and Morel scissors. The superior aspect of the fascia was grasped with Kochers x2, elevated off the underlying rectus muscles using blunt dissection. Inferior aspect of the fascia was grasped with Kochers x2, elevated off the underlying rectus muscles using blunt dissection. The midline was then entered bluntly and placed on stretch to provide adequate room for delivery. The bladder blade was inserted and bladder flap created in the normal fashion. The low transverse uterine incision was then made. The head of the was delivered through the hysterotomy without difficulty. Body and shoulders quickly followed. was noted to be vigorous upon delivery and 30-second delayed cord clamping was initiated. The cord was then double clamped and cut. was taken to the waiting nursery staff. Cord blood was obtained. Attention was then turned to deliver the placenta, which was delivered intact, 3-vessel cord, gentle cord traction. With fundal and uterine massage, the uterus was exteriorized. Was wrapped in a wet lap and several passes were made with a dry lap to remove any remaining membranes. The hysterotomy was then reapproximated with 0 Vicryl continuous running locked suture. There was noted to be a downward extension on the left side. Care was taken to avoid any major uterine vessels or ureters on that extension. A second imbricating layer was performed. The hysterotomy was noted to be hemostatic. The patient was noted to have some uterine atony, although bleeding was reasonable. We did opt to give the patient IM Methergine, which did help firm up the uterus. The posterior cul-de-sac was then cleaned of clots and debris. The uterus was returned to maternal abdomen. Right and left pericolic gutters were inspected, cleared of clots and debris. Hysterotomy was then reinspected and noted to be hemostatic. The fascia, muscle and subcutaneous layers were inspected and noted to be hemostatic. Fascia was then reapproximated with 0 Vicryl in continuous running stitch. The subcutaneous layers were reapproximated with 2-0 plain in a continuous running stitch. The dermal layers were reapproximated with 3-0 Vicryl on a Cuong needle with a subdermal stitch. The needle, sponge and instrument counts were correct at the completion of the case. Both mother and were stable in the immediate post-delivery period. I attest to the content of the Intraoperative Record and any orders documented therein. Any exception s are noted below.
[2020-06-15] MEDS ORDERED: ONDANSETRON INJ 2 MG/ML 2 ML VIAL IV PRN (19:14)
[2020-06-15] MEDS ORDERED: diphenhydrAMINE Capsule 25 MG CAP PO PRN (19:14)
[2020-06-15] MEDS ORDERED: PROMETHAZINE HCL 25 MG in SODIUM CHLORIDE 0.9% 50 ML IV PRN (19:14)
[2020-06-15] MEDS ORDERED: LACTATED RINGER'S 1,000 ML IV ONE (20:04)
[2020-06-15] MEDS: IBUPROFEN 600 MG TAB PO PRN (20:30)
[2020-06-15] MEDS: oxyCODONE/ACETAMINOPHEN 5mg/325mg TAB PO PRN (20:31)
[2020-06-16] MEDS: IBUPROFEN 600 MG TAB PO PRN ×5 (00:20→22:49)
[2020-06-16] MEDS: oxyCODONE/ACETAMINOPHEN 5mg/325mg TAB PO PRN ×5 (00:20→22:48)
[2020-06-16 06:14] LABS: Basophils # (auto) 0.02 K/uL (0-0.2); Basophils % (auto) 0.1 %; Eosinophils # (auto) 0.12 K/uL (0-0.5); Eosinophils % (auto) 0.9 %; Hematocrit (blood only) 23.8 % (37-47); Hemoglobin 7.4 g/dL (12.0-16.0); Immature Granulocytes # (auto) 0.07 K/uL (0.00-0.02); Immature Granulocytes % (auto) 0.5 %; Lymphocytes # (auto) 2.67 K/uL (1.2-3.4); Lymphocytes % (auto) 19.3 %; Mean Corpuscular Hemoglobin 24.3 pg (25-34); Mean Corpuscular Hgb Conc 31.1 g/dL (32-36); Mean Corpuscular Volume 78.3 fL (80-100); Mean Platelet Volume 10.3 fL (7.4-10.4); Monocytes # (auto) 1.31 K/uL (0.11-0.59); Monocytes % (auto) 9.5 %; Neutrophils # (auto) 9.63 K/uL (1.4-6.5); Neutrophils % (auto) 69.7 %; Platelet Count 253 K/uL (130-400); RDW Coefficient of Variation 15.9 % (11.5-14.5); RDW Standard Deviation 44.6 fL (36.4-46.3); Red Blood Count 3.04 M/uL (4.2-5.4); White Blood Count 13.82 K/uL (4.8-10.8)
[2020-06-16 06:42] LABS: BUN Creatinine Ratio 17.5 (10-20); Calcium 8.4 mg/dl (8.5-10.1); Creatinine Clr Calc Pharmacy 157.8 ml/min; Est GFR (African American) 135.3; Est GFR (Non-African American) 116.7; Potassium 4.2 mmol/L (3.5-5.1)
[2020-06-16 06:55] LABS: RBC Morphology Unremarkable
--- NOTE | 2020-06-16 07:50 | Obstetrical Progress Note ---
Date of Service June 16, 2020 Assessment & Plan (1) Encounter for care and examination after delivery: 29yo s/p pLTCS. Doing well. Routine care Subjective Ambulation: ambulating normally Voiding: no voiding problems Diet Tolerance:: regular diet Lochia:: Moderate Feeding Type:: breast feeding Physical Exam Constitutional WD/WN, vitals as above Respiratory normal respiratory effort; no respiratory distress and no labored breathing Gastrointestinal (Abdomen) Inspection/Auscultation: abdomen normal to inspection; abdomen not distended Percussion/Palpation: abdomen soft; abdomen nontender, no guarding and abdomen not rigid Genitourinary OB Exam Abdomen: + fundal height Fundus: + firm and + relation to umbilicus (Below); not tender and not boggy Results & Data ([facility]) Vital Signs (Past 12 Hours) Vital Signs Temp Pulse Resp BP Pulse Ox 06/15/20 23:35 36.4 C L 106 H 18 127/70 95 06/15/20 20:35 36.7 C 106 H 18 103/70 97
[2020-06-16] MEDS: DOCUSATE SODIUM 100 MG CAP PO SCH ×2 (08:06→20:37)
[2020-06-16] MEDS: SIMETHICONE 80 MG CHEW PO SCH ×4 (08:06→20:37)
[2020-06-16] MEDS: FERROUS SULFATE 325 MG TAB PO SCH (08:06)
[2020-06-16] MEDS: PRENATAL VITAMIN 1 TAB PO SCH (08:07)
[2020-06-16] MEDS ORDERED: bisacodyL 5 MG TABEC PO SCH (20:00)
[2020-06-17] MEDS: oxyCODONE/ACETAMINOPHEN 5mg/325mg TAB PO PRN ×3 (02:37→14:48)
[2020-06-17] MEDS: IBUPROFEN 600 MG TAB PO PRN ×3 (02:38→14:49)
[2020-06-17] MEDS ORDERED: bisacodyL 10 MG SUPP PR PRN (02:43)
[2020-06-17 06:39] LABS: Hematocrit (blood only) 23.4 % (37-47); Hemoglobin 7.3 g/dL (12.0-16.0)
--- NOTE | 2020-06-17 07:02 | Obstetrical Progress Note ---
Date of Service June 17, 2020 Assessment & Plan (1) Preeclampsia: (2) S/P section: Patient had mild pet. BPs are great and she has no s/s of pet. Patient desires d/c. hgb 9.6-->7.3. this is stable from yesterday and she is not symptomatic. Plan d/c home. Instructions given. f/u [address] Villa. Day #:: 2 Subjective Ambulation: ambulating normally Voiding: no voiding problems Passing Gas:: Yes Diet Tolerance:: regular diet Lochia:: Small Feeding Type:: breast feeding Pain tolerable with pain meds. no s/s pet Physical Exam Constitutional WD/WN, vitals as above Neck trachea midline, no thyromegaly Respiratory normal respiratory effort, lungs clear to auscultation Cardiovascular RRR, no murmur, no edema Gastrointestinal (Abdomen) obese, soft, nt, nd, ff/nt at u. incision c/d/i Psychiatric A+Ox3, euthymic affect Results & Data ([facility]) Vital Signs (Past 12 Hours) Vital Signs Temp Pulse Resp BP Pulse Ox 06/16/20 23:15 36.5 C 92 H 18 120/83 100
[2020-06-17] MEDS: DOCUSATE SODIUM 100 MG CAP PO SCH (09:07)
[2020-06-17] MEDS: FERROUS SULFATE 325 MG TAB PO SCH (09:07)
[2020-06-17] MEDS: SIMETHICONE 80 MG CHEW PO SCH ×3 (09:07→17:11)
[2020-06-17] MEDS: PRENATAL VITAMIN 1 TAB PO SCH (09:07)
--- NOTE | 2020-06-26 03:56 | Discharge Summary (DS) ---
HOSPITAL COURSE: The patient was admitted for induction of labor. The induction of labor ultimately resulted in the patient pushing for 3 hours with a failed vacuum and proceeded with an uncomplicated low transverse section. The patient remained in-house until 2 days , at which point patient requested discharge and she was stable for discharge. The patient had no other concerns or complications during her hospital stay and was discharged home in stable condition with planned followup at 6 weeks or as needed if other concerns arise. The patient was given both verbal and detailed written instructions prior to discharge and all questions answered prior to discharge.
== END 2020-06-17 18:00 | disposition home or self-care (01) | DRG 787 ==
LOC: OPB 11:27 → 4S1 11:27 → 4S2 06-15 05:15